=== PATIENT | male | born 1965 | race Caucasian/White ===

== ENCOUNTER 2020-04-09 14:09 | Outpatient (CLI) | payer BC, SELFPAY ==
--- NOTE | 2020-04-09 15:15 | MR_ITS ---
WS: [id number] MRI BRAIN WITH HIGH-RESOLUTION IMAGING THROUGH THE INTERNAL AUDITORY CANALS WITHOUT AND WITH CONTRAST HISTORY: Sensorineural HEARING LOSS, TINNITUS COMPARISON: None available. TECHNIQUE: Multiplanar, multisequence imaging is performed through the brain. Additional 3 mm imaging performed in multiple planes through the internal auditory canal. Postcontrast imaging with 17 ml's of Prohance. No acute intracranial hemorrhage, midline shift, edema or mass effect. Minimal scattered T2 and FLAIR signal hyperintensities in the periventricular white matter. No prior infarct or significant atrophy. Ventricles and extra-axial spaces are normal. No inferior displacement of cerebellar tonsils. Clivus and pituitary gland are normal. Internal and external auditory canals: Unremarkable. Cranial nerves VII and VIII complexes: Unremarkable. No enhancement or mass. Cerebellopontine angles: Normal. Paranasal sinuses: Normal. Mastoid air cells: Normal. Calvarium and scalp: Normal. Visualized [place] and dural venous sinuses demonstrate no abnormality. Arachnoid granulatio ns in the transverse sinuses. MR/MR iac's wo/w con* [id number] IMPRESSION: Normal MRI IACs. Mild chronic microvascular ischemic disease.
== END 2020-04-09 14:10 | disposition home or self-care (01) ==
LOC: RADWPI 14:14
PROVIDERS: Visit Provider Specialist
DX: H90.3 Sensorineural hearing loss, bilateral (principal); H93.13 Tinnitus, bilateral; I67.82 Cerebral ischemia
CPT/HCPCS: 70553; A9579

== ENCOUNTER 2021-01-19 10:46 | Outpatient (CLI) | payer OTHER, SELFPAY ==
--- NOTE | 2021-01-19 10:54 | US_ITS ---
WS: [id number] RIGHT UPPER QUADRANT ULTRASOUND HISTORY: ELEVATED LIVER ENZYMES COMPARISON: None available. Liver: 15.6 cm in length. Surface of the liver is slightly irregular. Moderate coarsened echotexture with attenuation. The entire liver is not very well visualized. Gallbladder: Normally distended gallbladder with no stones or wall thickening. CBD: 0.5 cm Pancreas: Not visualized. Right kidney: 12.7 cm in length. Normal size and echogenicity. No hydronephrosis or mass. Aorta and IVC: Unremarkable abdominal aorta and IVC. No ascites. US/US abdomen limited [id number] IMPRESSION: 1. Normal size liver with mild hepatic steatosis. Early changes of cirrhosis s hould be considered. 2. Normal gallbladder.
== END 2021-01-19 10:47 | disposition home or self-care (01) ==
LOC: US 10:49
PROVIDERS: Visit Provider Emergency Medicine Emergency Medical Services
DX: R94.5 Abnormal results of liver function studies (principal)
CPT/HCPCS: 76705

== ENCOUNTER 2021-02-04 20:00 | Outpatient (CLI) | payer OTHER, SELFPAY | END 2021-02-04 20:01 | disposition home or self-care (01) | LOC: SLEEP 02-05 09:00 | PROVIDERS: Visit Provider Family Medicine | DX: R06.83 Snoring (principal); E66.9 Obesity, unspecified | CPT/HCPCS: 95810 ==

== ENCOUNTER 2021-04-20 20:00 | Outpatient (CLI) | payer OTHER, SELFPAY | END 2021-04-20 20:01 | disposition home or self-care (01) | LOC: SLEEP 04-21 12:25 | PROVIDERS: Visit Provider Family Medicine | DX: R06.83 Snoring (principal); R53.83 Other fatigue | CPT/HCPCS: 95810 ==

== ENCOUNTER 2021-09-10 07:54 | Outpatient (CLI) | payer OTHER, SELFPAY ==
--- NOTE | 2021-09-10 08:07 | US_ITS ---
WS: [id number] ULTRASOUND ABDOMEN LIMITED CLINICAL INFORMATION: RUQ ELEVATED LIVER ENZYMES COMPARISON: None. FINDINGS: Liver Size: Mild hepatomegaly Craniocaudal length: 16.6 cm. Echogenicity: Coarse hepatic echogenicity Surface nodularity: Slightly cirrhotic Mass (size and location): None. Bile ducts Intrahepatic ducts: Normal. Common bile duct diameter: 0.5 cm. Gallbladder Gallbladder is contracted with shadowing 9 mm gallbladder calculus Gallstones: Present Gallbladder sludge: None. Gallbladder wall thickening: None. Pericholecystic fluid: None. Sonographic Chun sign: Absent. Pancreas Normal as visualized. Right kidney: Normal. Hydronephrosis: None. Size: 12.5 cm x 4.2 cm x 5.2 cm. Abdominal aorta and IVC Visualized portions are normal. Ascites: None. US/US abdomen limited [id number] IMPRESSION: 1. Mild hepatomegaly with coarse hepatic echogenicity suspicious for hepatocel lular disease. Suggestion of slightly cirrhotic hepatic contour. 2. Gallbladder is contracted. Shadowing gallbladder calculus measuring 9 mm. 3. No gallbladder wall thickening or pericholecystic fluid. Normal common bile duct. 4. No hydronephrosis in right kidney.
== END 2021-09-10 07:55 | disposition home or self-care (01) ==
LOC: RAD 07:55
PROVIDERS: Visit Provider Family Medicine
DX: R74.8 Abnormal levels of other serum enzymes (principal); R16.0 Hepatomegaly, not elsewhere classified
CPT/HCPCS: 76705; 93976

== ENCOUNTER 2022-07-25 15:45 | Outpatient (CLI) | payer OTHER, SELFPAY ==
--- NOTE | 2022-07-25 16:00 | US_ITS ---
WS: [id number] RIGHT UPPER QUADRANT ULTRASOUND HISTORY: RUQ PAIN AND ELEVATED LEVER ENZYMES COMPARISON: 09/10/2021 Liver: 15.7 cm in length. Liver is normal size. Moderate coarsened echogenicity throughout the liver. Surface of the liver is irregular and lobulated. No mass or bile duct dilatation. No bile duct dilat ation. Portal Vein: Normal hepatopetal flow with monophasic waveform. Gallbladder: Normally distended gallbladder. Several stones are present in the lumen. No pericholecys tic fluid or gallbladder wall thickening. CBD: 0.4 cm Pancreas: Partially obscured by bowel gas. The head and body are negative. Right kidney: 12.5 cm in length. Normal size and echogenicity. No hydronephrosis or mass. Aorta and IVC: Unremarkable abdominal aorta and IVC. No ascites. US/US abdomen limited [id number] IMPRESSION: 1. Hepatic changes of cirrhosis with no hepatic mass. 2. Normal hepatopetal flow. 3. Cholelithiasis without acute cholecystitis.
== END 2022-07-25 15:46 | disposition home or self-care (01) ==
LOC: RAD 15:47
PROVIDERS: Visit Provider Family Medicine
DX: R10.11 Right upper quadrant pain (principal); R74.8 Abnormal levels of other serum enzymes; K80.20 Calculus of gallbladder without cholecystitis without obstruction; K74.60 Unspecified cirrhosis of liver
CPT/HCPCS: 76705

== ENCOUNTER 2023-01-27 04:46 | Emergency (ER) | payer OTHER, SELFPAY ==
[2023-01-27] VITALS (8 sets, daily range): BP systolic 98–148; BP diastolic 63–87; PULSE 47–68; RESP 16; TEMP 36.8; O2SAT 95–98; BMI 29.5
--- NOTE | 2023-01-27 04:59 | ECG_ITS ---
[facility] Test Date: 2023-01-27 Pat Name: Josue Lange Department: Room: Gender: Male Button Maker: : 1965 Requested By: Emanuel Rivera Order Number: [id number] Ambrocio MD: Eloy Monge M.D. Measurements Intervals [place] Rate: 63 P: 10 DC: 151 QRS: -15 QRSD: 109 T: 29 QT: 411 QTc: 421 Interpretive Statements SINUS RHYTHM MINIMAL VOLTAGE CRITERIA FOR LVH, CONSIDER NORMAL VARIANT [MEETS CRITERIA IN ONE OF: R(aVL), S(V1), R(V5), R(V5/V6)+S(V1)] No previous ECG available for comparison Electronically Signed On 01-27-2023 21:57:52 CDT by Eloy Monge M.D. [id number] f
--- NOTE | 2023-01-27 05:02 | US_ITS ---
WS: [id number] RIGHT UPPER QUADRANT ULTRASOUND HISTORY: ruq pain COMPARISON: 07/25/2022 Liver: 18.8 cm in length. Liver is moderately enlarged. Cirrhotic appearing liver. Surface of the toni er is nodular. Very coarse echotexture throughout. There is a very subtle hypoechoic nodule measuring 1.6 cm in the anterior RIGHT lobe of the liver. No increased vascularity. Portal Vein: Not imaged. No waveform submitted. Gallbladder: Normally distended with cholelithiasis. Gallbladder wall is top normal size. No perichol ecystic fluid. CBD: 0.4 cm Pancreas: Not visualized. Right kidney: 12.2 cm in length. Normal size kidney. Central pelvic cyst upper pole with a maximum di ameter of 1.0 cm. No hydronephrosis. Aorta and IVC: Unremarkable abdominal aorta and IVC. No ascites. US/US gall bladder [id number] IMPRESSION: 1. Cholelithiasis without evidence for acute cholecystitis. 2. Cirrhosis.
[2023-01-27 05:03] LABS: Basophils # 0.1 10^3/uL (0.0-0.1); Basophils % 0.7 %; Eosinophils # 0.1 10^3/uL (0.0-0.8); Eosinophils % 0.8 %; Hematocrit 44.2 % (42.0-52.0); Hemoglobin 14.7 g/dL (11.7-16.6); Lymphocytes # 1.7 10^3/uL (0.8-4.8); Lymphocytes % 18.8 %; Mean Corpuscular HGB Conc 33.3 g/dL (30.0-36.0); Mean Corpuscular Hemoglobin 30.6 pg (28.0-34.0); Mean Corpuscular Volume 91.9 fl (80-94); Mean Platelet Volume 10.2 fL (7.4-10.4); Monocytes # 0.6 10^3/uL (0.2-0.9); Monocytes % 6.3 %; Neutrophils # 6.61 10^3/uL (1.8-7.7); Neutrophils % 73.1 %; Nucleated Red Blood Cells % 0 %; Platelet Count 164 10^3/cmm (130-400); Red Blood Count 4.81 10^6/uL (4.1-5.3); Red Cell Distribution Width 13.6 % (12.1-15.1)
--- NOTE | 2023-01-27 05:03 | ED_ITS ---
Documented by User: Emanuel Rivera MD 01/27/23 05:06 HPI - Abdominal Pain General: Chief Complaint: Abdominal Pain Stated Complaint: abd pain Time Seen by Provider: 01/27/23 04:48 Source: patient Mode of arrival: ambulatory Limitations: no limitations History of Present Illness: 57-year-old male who states that he is having right upper quadrant abdominal pain roughly 3 hours ago he states sharp pain he rates it a 7 out of 10 he had 2 episodes of vomiting as well. States is worse with movement and palpation improved with rest. States he has been having these attacks he was seen 1 week ago at [facility] states he had a CT scan that showed gallstones they placed him on antibiotics he has follow-up on the with the surgeon in [place]. Rates his pain a 6 out of 10 currently Associated Symptoms: Reports nausea and vomiting; Denies chills, diarrhea, dysuria and fever(s) Review of Systems Const: Denies: fever(s), chills, body aches or change in appetite ENMT: Denies: throat pain or dental pain Card: Denies: chest pain Resp: Denies: dyspnea GI: Reports: abdominal pain, nausea and vomiting; Denies: diarrhea : Denies: dysuria Musc: Denies: neck pain or back pain Skin/Breast: Denies: rash Neuro: Denies: headache(s) [facility] ED PFSH: Medical History (Updated 01/27/23 @ 08:55 by Jason Su DO) No pertinent past medical history Social History (Updated 01/27/23 @ 05:04 by Emanuel Rivera MD) Substance/Drug Use: never Physical Exam Const: COMMON NORMALS: patient oriented x3 and healthy appearing HENMT: COMMON NORMALS: normocephalic and atraumatic HEAD & SCALP: normocephalic and atraumatic Eye: COMMON NORMALS: conjunctivae normal CONJUNCTIVA: Yes conjunctivae normal Neck/C-Spine: COMMON NORMALS: full ROM and supple Chest: COMMONS NORMALS: normal inspection of the chest and normal palpation of entire chest wall Resp: COMMON NORMALS: normal respiratory effort, No retractions, No use of accessory muscles and clear to auscultation bilaterally AUSCULTATION: clear to auscultation bilaterally Cardio: COMMON NORMALS: regular rate, regular rhythm and No murmurs present (Cardio) RATE: regular rate RHYTHM: regular rhythm GI: COMMON NORMALS: Normal to inspection, nondistended, normoactive bowel sounds present, Soft to palpation and no masses PALPATION: Yes Soft to palpation and Yes Tenderness to palpation present (GI) Details: RUQ Extremity: COMMON NORMALS: normal to inspection and full ROM Neuro: COMMON NORMALS: patient oriented x3, moves all extremities and no focal motor deficits Psych: COMMON NORMALS: mental status grossly normal, Normal thought process present and cooperative THOUGHT PROCESS: Normal thought process present Skin: COMMON NORMALS: no rashes or lesions noted and no wounds GENERAL SKIN EXAM: no rashes or lesions noted Course Vital Signs: Vital signs: Vital Signs Temperature 98.2 F 01/27/23 04:59 Pulse Rate 52 L 01/27/23 08:32 Respiratory Rate 16 01/27/23 06:38 Blood Pressure 125/63 01/27/23 08:32 Pulse Oximetry 98 01/27/23 08:32 Oxygen Delivery Me thod Room Air 01/27/23 04:59 MDM - Abdominal Pain Lab Data 01/27/23 04:58 01/27/23 04:58 Labs/Radiology: Radiology Impressions Gallbladder Ultrasound 01/27/23 05:02 IMPRESSION: 1. Cholelithiasis without evidence for acute cholecystitis. 2. Cirrhosis. Laboratory Results WBC 9.0 10^3/uL (4.0-10.0) 01/27/23 04:58 RBC 4.81 10^6/uL (4.1-5.3) 01/27/23 04:58 Hgb 14.7 g/dL (11.7-16.6) 01/27/23 04:58 Hct 44.2 % (42.0-52.0) 01/27/23 04:58 MCV 91.9 fl (80-94) 01/27/23 04:58 MCH 30.6 pg (28.0-34.0) 01/27/23 04:58 MCHC 33.3 g/dL (30.0-36.0) 01/27/23 04:58 RDW 13.6 % (12.1-15.1) 01/27/23 04:58 Plt Count 164 10^3/cmm (130-400) 01/27/23 04:58 MPV 10.2 fL (7.4-10.4) 01/27/23 04:58 Neut % (Auto) 73.1 % 01/27/23 04:58 Lymph % (Auto) 18.8 % 01/27/23 04:58 Mitchell % (Auto) 6.3 % 01/27/23 04:58 Eos % (Auto) 0.8 % 01/27/23 04:58 Baso % (Auto) 0.7 % 01/27/23 04:58 Neut # (Auto) 6.61 10^3/uL (1.8-7.7) 01/27/23 04:58 Lymph # (Auto) 1.7 10^3/uL (0.8-4.8) 01/27/23 04:58 Mitchell # (Auto) 0.6 10^3/uL (0.2-0.9) 01/27/23 04:58 Eos # (Auto) 0.1 10^3/uL (0.0-0.8) 01/27/23 04:58 Baso # (Auto) 0.1 10^3/uL (0.0-0.1) 01/27/23 04:58 Nucleated RBC % (auto) 0 % 01/27/23 04:58 Nucleated RBCs # 0.0 /100WBC 01/27/23 04:58 Sodium 139 mmol/L (136-145) 01/27/23 04:58 Potassium 3.9 mmol/L (3.5-5.1) 01/27/23 04:58 Chloride 103 mmol/L (98-107) 01/27/23 04:58 Carbon Dioxide 24 mmol/L (22-29) 01/27/23 04:58 Anion Gap 15.9 (5-19) 01/27/23 04:58 BUN 16 mg/dL (6-20) 01/27/23 04:58 Creatinine 1.0 mg/dL (0.7-1.2) 01/27/23 04:58 GFR Calculation 76.5 mL/min (90-130) L 01/27/23 04:58 Glucose 107 mg/dL (65-115) 01/27/23 04:58 Calculated Osmolality 290 mOsm/kg (285-295) 01/27/23 04:58 Calcium 9.6 mg/dL (8.5-10.5) 01/27/23 04:58 Total Bilirubin 0.5 mg/dL (0.15-1.2) 01/27/23 04:58 AST 41 U/L (0-40) H 01/27/23 04:58 ALT 51 U/L (0-41) H 01/27/23 04:58 Alkaline Phosphatase 102 U/L (40-130) 01/27/23 04:58 Total Protein 7.2 g/dL (6.6-8.7) 01/27/23 04:58 Albumin 4.2 g/dL (3.5-5.2) 01/27/23 04:58 Globulin 3.0 g/dL (1.3-4.6) 01/27/23 04:58 Lipase 68 U/L (13-60) H 01/27/23 04:58 Urine Color Yellow (Yellow) 01/27/23 08:17 Urine Appearance Clear (CLEAR) 01/27/23 08:17 Urine pH 6 (5-7) 01/27/23 08:17 Ur Specific [place] 1.020 (1.005-1.030) 01/27/23 08:17 Urine Protein Neg (Negative) 01/27/23 08:17 Urine Glucose (UA) Norm (Normal) 01/27/23 08:17 Urine Ketones Negative (Negative) 01/27/23 08:17 Urine Blood Neg (Negative) 01/27/23 08:17 Urine Nitrate Negative (Negative) 01/27/23 08:17 Urine Bilirubin Neg (Negative) 01/27/23 08:17 Urine Urobilinogen Norm mg/dL (Negative) 01/27/23 08:17 Ur Leukocyte Esterase Negative (Negative) 01/27/23 08:17 EKG Data EKG 1: I personally reviewed and interpreted this EKG as follows: EKG interpretation date: 01/27/23 EKG interpretation time: 04:59 Interpretation: nsr hr [address] or t wave abnormalities qrs 109 qtc 418 Discharge Plan Discharge Patient Disposition: Home Clinical Impression: Cholelithiasis Prescriptions: New promethazine 25 mg tablet 25 mg PO Q6H PRN (Reason: nausea and vomiting) Qty: 20 0RF Discharge Orders: Discharge ED (Routine); Ordered 01/27/23 Ordered By: Jason Su Discharge Diet: As Directed Discharge Activity: Increase activity as tolerated Patient Instructions: Opioid Safety, Pain Management Activity Restrictions/Additional Instructions: You are seen today for abdominal pain. There is no sign of acute colitis cystitis but you do have cholelithiasis (gallbladder stones). Avoid fatty foods tomato-based products citrus fruits and fat for or fried foods. He has management make arrangements for follow-up with general surgery. Coding Level of Care Code ED Family And Divorce Legal Assistant for Chg Fwd Documented by User: Jason Su DO 01/27/23 08:58 HPI - Abdominal Pain General: Chief Complaint: Abdominal Pain Stated Complaint: abd pain Time Seen by Provider: 01/27/23 04:48 PFSH ED PFSH: Medical History (Updated 01/27/23 @ 08:55 by Jason Su DO) No pertinent past medical history Social History (Updated 01/27/23 @ 05:04 by Emanuel Rivera MD) Substance/Drug Use: never Course Vital Signs: Vital signs: Vital Signs Temperature 98.2 F 01/27/23 04:59 Pulse Rate 52 L 01/27/23 08:32 Respiratory Rate 16 01/27/23 06:38 Blood Pressure 125/63 01/27/23 08:32 Pulse Oximetry 98 01/27/23 08:32 Oxygen Delivery Me thod Room Air 01/27/23 04:59 MDM - Abdominal Pain Medical Decision Making Assumed care at change of shift. Patient seen and evaluated exam repeated. Mild right upper quadrant discomfort. He does have cholelithiasis without acute cholecystitis. Discharge home dietary restrictions. Promethazine as needed. We will try to expedite a consultation with general surgery. Medical Records I reviewed the patient's medical records. Lab Data I reviewed the patient's lab results. 01/27/23 04:58 01/27/23 04:58 Labs/Radiology: Radiology Impressions Gallbladder Ultrasound 01/27/23 05:02 IMPRESSION: 1. Cholelithiasis without evidence for acute cholecystitis. 2. Cirrhosis. Laboratory Results WBC 9.0 10^3/uL (4.0-10.0) 01/27/23 04:58 RBC 4.81 10^6/uL (4.1-5.3) 01/27/23 04:58 Hgb 14.7 g/dL (11.7-16.6) 01/27/23 04:58 Hct 44.2 % (42.0-52.0) 01/27/23 04:58 MCV 91.9 fl (80-94) 01/27/23 04:58 MCH 30.6 pg (28.0-34.0) 01/27/23 04:58 MCHC 33.3 g/dL (30.0-36.0) 01/27/23 04:58 RDW 13.6 % (12.1-15.1) 01/27/23 04:58 Plt Count 164 10^3/cmm (130-400) 01/27/23 04:58 MPV 10.2 fL (7.4-10.4) 01/27/23 04:58 Neut % (Auto) 73.1 % 01/27/23 04:58 Lymph % (Auto) 18.8 % 01/27/23 04:58 Mitchell % (Auto) 6.3 % 01/27/23 04:58 Eos % (Auto) 0.8 % 01/27/23 04:58 Baso % (Auto) 0.7 % 01/27/23 04:58 Neut # (Auto) 6.61 10^3/uL (1.8-7.7) 01/27/23 04:58 Lymph # (Auto) 1.7 10^3/uL (0.8-4.8) 01/27/23 04:58 Mitchell # (Auto) 0.6 10^3/uL (0.2-0.9) 01/27/23 04:58 Eos # (Auto) 0.1 10^3/uL (0.0-0.8) 01/27/23 04:58 Baso # (Auto) 0.1 10^3/uL (0.0-0.1) 01/27/23 04:58 Nucleated RBC % (auto) 0 % 01/27/23 04:58 Nucleated RBCs # 0.0 /100WBC 01/27/23 04:58 Sodium 139 mmol/L (136-145) 01/27/23 04:58 Potassium 3.9 mmol/L (3.5-5.1) 01/27/23 04:58 Chloride 103 mmol/L (98-107) 01/27/23 04:58 Carbon Dioxide 24 mmol/L (22-29) 01/27/23 04:58 Anion Gap 15.9 (5-19) 01/27/23 04:58 BUN 16 mg/dL (6-20) 01/27/23 04:58 Creatinine 1.0 mg/dL (0.7-1.2) 01/27/23 04:58 GFR Calculation 76.5 mL/min (90-130) L 01/27/23 04:58 Glucose 107 mg/dL (65-115) 01/27/23 04:58 Calculated Osmolality 290 mOsm/kg (285-295) 01/27/23 04:58 Calcium 9.6 mg/dL (8.5-10.5) 01/27/23 04:58 Total Bilirubin 0.5 mg/dL (0.15-1.2) 01/27/23 04:58 AST 41 U/L (0-40) H 01/27/23 04:58 ALT 51 U/L (0-41) H 01/27/23 04:58 Alkaline Phosphatase 102 U/L (40-130) 01/27/23 04:58 Total Protein 7.2 g/dL (6.6-8.7) 01/27/23 04:58 Albumin 4.2 g/dL (3.5-5.2) 01/27/23 04:58 Globulin 3.0 g/dL (1.3-4.6) 01/27/23 04:58 Lipase 68 U/L (13-60) H 01/27/23 04:58 Urine Color Yellow (Yellow) 01/27/23 08:17 Urine Appearance Clear (CLEAR) 01/27/23 08:17 Urine pH 6 (5-7) 01/27/23 08:17 Ur Specific [place] 1.020 (1.005-1.030) 01/27/23 08:17 Urine Protein Neg (Negative) 01/27/23 08:17 Urine Glucose (UA) Norm (Normal) 01/27/23 08:17 Urine Ketones Negative (Negative) 01/27/23 08:17 Urine Blood Neg (Negative) 01/27/23 08:17 Urine Nitrate Negative (Negative) 01/27/23 08:17 Urine Bilirubin Neg (Negative) 01/27/23 08:17 Urine Urobilinogen Norm mg/dL (Negative) 01/27/23 08:17 Ur Leukocyte Esterase Negative (Negative) 01/27/23 08:17 Discharge Plan Discharge Patient Disposition: Home Clinical Impression: Cholelithiasis Prescriptions: New promethazine 25 mg tablet 25 mg PO Q6H PRN (Reason: nausea and vomiting) Qty: 20 0RF Discharge Orders: Discharge ED (Routine); Ordered 01/27/23 Ordered By: Jason Su Discharge Diet: As Directed Discharge Activity: Increase activity as tolerated Patient Instructions: Opioid Safety, Pain Management Activity Restrictions/Additional Instructions: You are seen today for abdominal pain. There is no sign of acute colitis cystitis but you do have cholelithiasis (gallbladder stones). Avoid fatty foods tomato-based products citrus fruits and fat for or fried foods. He has management make arrangements for follow-up with general surgery. Coding Level of Care Code ED Family And Divorce Legal Assistant for Gavin Hirsch
[2023-01-27] MEDS: morphine 4 mg/mL SDV 1 mL IVP (05:08)
[2023-01-27] MEDS: ondansetron 2 mg/ML SDV 2 mL 4 MG IVP (05:08)
--- NOTE | 2023-01-27 05:11 | PC.NURSE ---
Upon entering room to administer medications, pt states that he normally has a lower heart rate in 50s. Monitor currently displays 57 bpm. Pt denies any dizziness, lightheadedness, and any symptoms. Will continue to closely monitor heart rate and vital signs.
[2023-01-27 05:23] LABS: Alanine Aminotransferase 51 U/L (0-41); Albumin Level 4.2 g/dL (3.5-5.2); Alkaline Phosphatase 102 U/L (40-130); Anion Gap 15.9 (5-19); Aspartate Amino Transferase 41 U/L (0-40); Blood Urea Nitrogen 16 mg/dL (6-20); Calcium 9.6 mg/dL (8.5-10.5); Carbon Dioxide 24 mmol/L (22-29); Chloride 103 mmol/L (98-107); Glomerular Filtration Rate 76.5 mL/min (90-130); Glucose 107 mg/dL (65-115); Lipase 68 U/L (13-60); Osmolality Calculated 290 mOsm/kg (285-295); Potassium 3.9 mmol/L (3.5-5.1); Sodium 139 mmol/L (136-145); Total Bilirubin 0.5 mg/dL (0.15-1.2); Total Protein 7.2 g/dL (6.6-8.7)
[2023-01-27] MEDS: sodium chloride 0.9% 1,000 ML 999 ML IV (05:44)
[2023-01-27 08:34] LABS: Add Urine Microscopic? NO; Charge for UA Resulting for Rev
[2023-01-27 08:41] LABS: Bilirubin Urine Neg (Negative); Blood Urine Neg (Negative); Glucose Urine UA Norm (Normal); Ketones Urine Negative (Negative); Leukocyte Esterase Urine Negative (Negative); Nitrate Urine Negative (Negative); Protein Urine Neg (Negative); Urine Appearance Clear (CLEAR); Urine Color Yellow (Yellow); Urobilinogen Urine Norm (Negative); pH Urine 6 (5-7)
--- NOTE | 2023-01-27 10:08 | DCPLANNER ---
Addendum entered by Akanksha Layne 01/31/23 12:33: manager generation received the following message from the general surgery clinic regarding follow up appointment: Dr. Martinez is not authorized to accept [employer] at this time. caser in called patient to explain this to patient, unable to speak with patient at this time. A voicemail was left for patient to return case management coordinator phone call. Original Note: manager generation had message to schedule a follow up appointment for patient with general surgery. manager generation sent patients information to the front office staff at general surgery. Patients information will be printed and reviewed. Clinic will call patient with appointment information.
--- NOTE | 2023-01-31 14:56 | DCPLANNER ---
account manager employee benefits called patient due to no primary care physician - no answer at this time.
== END 2023-01-27 09:03 | disposition home or self-care (01) ==
PROVIDERS: Emergency Medicine; Emergency Provider Family Medicine
DX: K80.20 Calculus of gallbladder without cholecystitis without obstruction (principal)
CPT/HCPCS: 76705; 80053; 81003; 83690; 85025; 93005; 96374; 96375; 99285; J2270; J2405; J7030

== ENCOUNTER 2023-08-29 07:57 | Outpatient (CLI) | payer OTHER, SELFPAY ==
--- NOTE | 2023-08-29 | ECG_ITS ---
[facility] Test Date: 2023-08-29 Pat Name: Josue Lange Department: Room: Gender: Male Patient Case Coordinator: Emma Rouse : 1965 Requested By: Nola Hendricks Order Number: [id number] Ambrocio MD: Eloy Monge M.D. Interpretive Statements NAME OF STUDY: EXERCISE SESTAMIBI STRESS TEST INDICATION: Chest Pain, PROCEDURE: The baseline electrocardiogram showed sinus bradycardia with minimal right ventricular conduction delay. At the baseline, the patient's blood pressure was 138/97 mm Hg with a heart rate of 53. The patient exercised for 8 minutes and 44 seconds on a standard Kevon protocol. Patient attained a maximum heart rate of 148 beats per minute(92% of the maximum predicted heart rate) with a blood pressure at the peak exercise of 214/93 mm Hg. The EKG at the peak exercise revealed no significant changes. Patient did not have any chest pain or any significant arrhythmis with the exercise Sestamibi was injected 1 minute prior to the peak exercise During the recovery phase, there were no new changes. Blood pressure at the end of the recovery phase was 158/89 mm Hg with a heart rate of 67 per minute. CONCLUSION: 1. No significant EKG changes with the treadmill exercise 2. No exercise-induced chest pain or cardiac arrhythmia 3. Good exercise tolerance, attained a maximum of 10 .2 METs 4. Sestamibi/Sestamibi perfusion results pending; see separate report. Electronically Signed On 09-01-2023 13:21:34 TESTING DIRECTOR by Eloy Monge M.D. [id number]
[2023-08-29 09:16] VITALS: BMI 30.2
--- NOTE | 2023-08-29 09:16 | NMCV_ITS ---
NM [place] perf SPECT r/s* [id number] Josue Lange Age: 58 Gender: M : 1965 Exam Date: 08/29/2023 09:09 Ordering Phys: Nola Hendricks MD Technologist: LUDA Dennis Exam Location: [facility] Indications: CHEST PAIN STRESS TEST Please see separate stress test report in [facility] for full findings IMAGE PROTOCOL Rest/Stress 1 Exercise Day Radiopharmaceutical Dose (mCi) Administration Site Administered by Rest: Tc-99m 10.9 IV LUDA Dennis Sestamibi Stress:Tc-99m 32.3 IV LUDA Curry Sestamibi Rest: 29-Aug-2023 60 Discovery 630 Stress: 29-Aug-2023 15 Discovery 630 Radiopharmaceutical was injected at 85 % maximum heart rate. Images obtained in supine and prone position. SPECT RESULTS Technical Quality: Excellent Raw Data Analysis: Normal Image Corrections: No attenuation or motion correction applied Summed Stress Score: 2 Summed Rest Score: 0 Summed Difference Score: 2 PERFUSION FINDINGS Small area of slightly decreased tracer uptake was noted in the apical lateral and mid inferolateral regions with significant reversibility. However with the prone imaging, there was no significant reversible defects FUNCTIONAL RESULTS (calculated via Gated SPECT) Stress Image LV EF (%): 61 Stress EDV (mL):129 TID: 0.84 Stress ESV (mL):50 FUNCTIONAL FINDINGS: Segmental wall motion analysis revealing no gross wall motion normalities IMPRESSIONS 1. Myocardial perfusion imaging revealing small area of inconsistent reversible defect in the apical lateral and mid inferolateral regions, suggesting ischemia in the distribution of the left circumflex artery. However because of the inconsistency with the prone imaging, the lability of this finding is questionable. 2. Normal LV ejection fraction of 61%. 3. LV wall motion analysis revealing no gross wall motion abnormalities. 4. Normal LV volume LV volume, opening up to normal No similar previous studies are available for comparison Dr Eloy Monge MD [facility] (Electronically Signed) Final Date: 29 August 2023 14:04 S
[2023-08-29 10:04] VITALS: BP 159/89; PULSE 72
== END 2023-08-29 07:58 | disposition home or self-care (01) ==
LOC: CDL 07:59
PROVIDERS: PCP Family Medicine; Visit Provider Family Medicine
DX: R07.9 Chest pain, unspecified (principal)
CPT/HCPCS: 36415; 78452; 93017; A9500

== ENCOUNTER → 2023-10-25 14:45 | Outpatient (BNVA) | payer OTHER, SELFPAY | PROVIDERS: PCP Family Medicine; Referring Provider Family Medicine; Visit Provider Internal Medicine Cardiovascular Disease | DX: R07.9 Chest pain, unspecified (principal); R94.39 Abnormal result of other cardiovascular function study; I10 Essential (primary) hypertension; R73.03 Prediabetes | CPT/HCPCS: 99204 ==

== ENCOUNTER 2023-11-07 14:50 | Outpatient (CLI) | payer OTHER, SELFPAY ==
--- NOTE | 2023-11-07 15:00 | USCV_ITS ---
Josue Lange Age: 58 Gender: M : 1965 Exam Date: 11/07/2023 14:59 Ordering Phys: Eloy Monge MD ([email or web address]) Technologist: JESUS MANUEL Exam Location[place] [facility] [place]: chest pain BP: / HR: 48 Rhythm: Sinus Technical Quality: Adequate MEASUREMENTS (Male / Female) Normal Values 2D ECHO LV Diastolic Diameter PLAX 5.6 cm 4.2 - 5.9 / 3.9 - 5.3 cm LV Systolic Diameter PLAX 3.6 cm LV Chamber Size 3.7 cm IVS Diastolic Thickness 1.0 cm 0.6 - 1.0 / 0.6 - 0.9 cm IVS Systolic Thickness 1.0 cm LVPW Diastolic Thickness 1.2 cm 0.6 - 1.0 / 0.6 - 0.9 cm LVPW Systolic Thickness 1.3 cm RV Chamber Size 4.1 cm LVOT Diameter 2.1 cm LV Ejection Fraction 2D Teich 55.3 % LV Ejection Fraction MOD 2C 52.9 % LV Ejection Fraction 2C AL 51.3 % LA Diameter 3.4 cm LA Width 3.2 cm LA Height 3.7 cm RA Width 3.5 cm RA Height 3.5 cm Aorta at Sinotubular Diameter 3.9 cm IVC Diameter 2.2 cm M-MODE Aortic Annulus Diameter 4.4 cm LA Ao Ratio MM 0.9 MV E Point Septal Separation 0.4 cm DOPPLER AV Peak Velocity 153.0 cm/s LVOT Peak Velocity 138.0 cm/s AV Area Cont Eq vti 2.6 cm squared AV Area Cont Eq pk 3.1 cm squared MV Area PHT 2.6 cm squared Mitral E to A Ratio 1.1 MV E' Velocity 49.0 cm/s Mitral E to MV E' Ratio 9.7 Mitral E to LV E' Lateral Ratio 9.3 Mitral E to LV E' Septal Ratio 10.1 TR Peak Velocity 228.6 cm/s TR Peak Gradient 20.9 mmHg TR Mean Velocity 170.3 cm/s TR Mean Gradient 12.9 mmHg TR Velocity Time Integral 76.4 cm TV Peak E Velocity 73.0 cm/s Right Atrial Pressure 3.0 mmHg Pulmonary Artery Systolic Pressu 23.9 mmHg RV Acceleration Time 0.2 s RV Ejection Time 0.4 s RV AcT/ET 0.4 FINDINGS Left Ventricle Left ventricle is mildly dilated. LV systolic function is borderline normal with EF of 50 to 55%. No regional wall motion abnormalities are seen. Right Ventricle Grossly moderately hypokinetic. Right Atrium Normal in size Left Atrium Dilated Mitral Valve Structurally normal mitral valve. No significant stenosis or regurgitation seen. Aortic Valve Structurally normal aortic valve. No significant stenosis or regurgitation seen. Tricuspid Valve Mild tricuspid regurgitation. Pulmonary artery systolic pressure is normal. Pulmonic Valve Not well-visualized. Pericardium Normal Aorta Ascending aorta is dilated with diameter of 3.9cm IVC Not well visualized CONCLUSIONS Left ventricle is mildly dilated. LV systolic function is borderline normal with EF of 50 to 55%. Moderately hypokinetic right ventricle. Left atrial dilation Mild tricuspid regurgitation Ascending aorta is dilated with diameter of 3.9 cm No comparison studies are available. Ramón Schafer MD (Electronically Signed) Final Date: 13 November 2023 15:58 S
== END 2023-11-07 14:51 | disposition home or self-care (01) ==
LOC: RAD 14:50
PROVIDERS: PCP Family Medicine; Visit Provider Internal Medicine Cardiovascular Disease
DX: R07.9 Chest pain, unspecified (principal); I07.1 Rheumatic tricuspid insufficiency; I77.810 Thoracic aortic ectasia; I49.1 Atrial premature depolarization; I49.3 Ventricular premature depolarization
CPT/HCPCS: 93242; 93306

== ENCOUNTER → 2024-01-22 14:23 | Outpatient (BNVA) | payer OTHER, SELFPAY | PROVIDERS: PCP Family Medicine; Visit Provider Internal Medicine Cardiovascular Disease | DX: I49.8 Other specified cardiac arrhythmias (principal); R94.39 Abnormal result of other cardiovascular function study; I10 Essential (primary) hypertension | CPT/HCPCS: 99214 ==

== ENCOUNTER → 2024-08-27 10:15 | Outpatient (BNVA) | payer OTHER, SELFPAY | PROVIDERS: PCP Family Medicine; Visit Provider Nurse Practitioner Family | DX: I10 Essential (primary) hypertension (principal); I49.8 Other specified cardiac arrhythmias; R94.39 Abnormal result of other cardiovascular function study; Z87.891 Personal history of nicotine dependence; R73.03 Prediabetes | CPT/HCPCS: 99214 ==

== ENCOUNTER → 2024-11-05 08:25 | Outpatient (BNVA) | payer OTHER, SELFPAY | PROVIDERS: PCP Family Medicine; Visit Provider Podiatrist Foot & Ankle Surgery | DX: M79.672 Pain in left foot (principal); M72.2 Plantar fascial fibromatosis; M24.572 Contracture, left ankle | CPT/HCPCS: 73630; 99203 ==